=== PATIENT | male | born 1930 | race Caucasian/White ===

== ENCOUNTER 2018-03-09 19:03 | Inpatient (IN) | payer OTHER, MEDICARE ==
[2018-03-09] MEDS ORDERED: NS 1,000 ML IV ONE (19:26)
--- NOTE | 2018-03-09 19:29 | EDPHY ---
H & P Time Seen by Provider: 03/09/18 19:26 HPI/ROS: HPI CHIEF COMPLAINT: Generalized weakness, cough, short of breath, hypoxia, fever HISTORY OF PRESENT ILLNESS: Patient very pleasant 87-year-old male, presents emergency room with shortness of breath, increasing confusion, fever to 102 at his primary care doctor's office today, generalized weakness, and productive cough with productive sputum. The daughter arrived from [facility] ([place], [place]) to take him to the primary care doctor's office today for increasing confusion. He was noted to have a fever at his primary care doctor's office of 102. Was noted to be tachycardic. He was referred to the emergency room. Upon arrival he is noted to have an oxygen saturation of 80%. He does complain of global weakness. And shortness of breath. Past Medical History: Underlying lung disease, spinal stenosis Past Surgical History: No recent surgery Social History: Denies daily use of drugs alcohol tobacco. Family History: ROS REVIEW OF SYSTEMS: A comprehensive 10 point review of systems is otherwise negative aside from elements mentioned in the history of present illness. Exam Constitutional elderly, thin appearing, frail triage nursing summary reviewed, vital signs reviewed, awake/alert. Vital signs noted at triage. Eyes normal conjunctivae and sclera, EOMI, PERRLA. HENT normal inspection, atraumatic, dry mucus membranes, no epistaxis, neck supple/ no meningismus, no raccoon eyes. Respiratory crackles on the right lung field, left lung virgen clear. Cardiovascular rate normal, regular rhythm, no murmur, no edema, distal pulses normal. Gastrointestinal soft, non-tender, no rebound, no guarding, normal bowel sounds, no distension, no pulsatile mass. Genitourinary no CVA tenderness. Musculoskeletal trace pitting edema bilaterally lower extremities, no midline vertebral tenderness, full range of motion, no calf swelling, no tenderness of extremities, no meningismus, good pulses, neurovascularly intact. Skin pink, warm, & dry, no rash, skin atraumatic. Neurologic awake, alert and oriented x 3, AAOx3, moves all 4 extremities equally, motor intact, sensory intact, CN II-XII intact, normal cerebellar, normal vision, normal speech. Psychiatric normal mood/affect. Heme/Lymph/Immune no lymphadenopathy. Differential Diagnosis: Includes but is not limited to in a particular order acute sepsis, bacteremia, dehydration, pneumonia, electrolyte disturbance, pulmonary embolism, CHF Medical Decision Making: Plan for this patient workup for hypoxia fever will obtain blood work, IV establishment, blood cultures, lactic acid, chest x-ray, EKG plan for admission to the hospital. Re-evaluation: Patient's chest x-ray reviewed. Shows cardiomegaly bilateral pulmonary infiltrates concerning for bilateral pneumonia. Patient's O2 sat 92% on 5 L resting comfortably. Blood work noted he has a low sodium of 125. He has only received 500 cc of fluid here in the emergency room. Patient's blood work reviewed. Patient is getting a CT angiogram of his chest to further delineate these infiltrates on his chest x-ray. Patient will be admitted to Dr. Janny Glover, for further care of hypoxia, fever , pneumonia. 2118: Patient remains hemodynamically stable on supplemental oxygen 6 L nasal cannula. Patient admitted to hospital for bilateral pneumonia. Source: Patient, Family - Medical/Surgical History Hx Diabetes: No - Social History Smoking Status: Never smoked Constitutional: Initial Vital Signs Temperature (C) 36.8 C 03/09/18 19:10 Heart Rate 76 03/09/18 19:10 Respiratory Rate 22 H 03/09/18 19:10 Blood Pressure 101/59 L 03/09/18 19:10 O2 Sat (%) 80 L 03/09/18 19:10 O2 Delivery Mode Nasal Cannula O2 (L/minute) 5 Allergies/Adverse Reactions: Latex, Natural Rubber Allergy (Mild, Verified 07/31/15 08:46) Rash Home Medications: Medication Instructions Recorded Aspirin EC [Aspirin EC 81 mg (*)] 81 mg PO DAILY 03/09/18 Donepezil HCl [Donepezil HCl] 10 mg PO DAILY 03/09/18 Herbals/Supplements -Info Only 1 ea PO DAILY 03/09/18 Levothyroxine Sodium 50 mcg PO DAILY 03/09/18 [Levothyroxine Sodium] Nitroglycerin [Nitrostat 0.4 mg 0.4 mg SL Q5M PRN 03/09/18 (*)] Timolol Maleate [Timolol Maleate] 1 drop EACHEYE BID 03/09/18 Travoprost Z 0.004% [Travatan Z 1 drops EACHEYE HS 03/09/18 0.004% (*)] Albuterol Sulfate [Proair Hfa] 2 puffs IH Q3H PRN 03/10/18 Azelastine HCl 2 spray EACHNARE DAILY 03/10/18 Budesonide 90 Mcg INH [Pulmicort 2 puffs IH DAILY 03/10/18 90 Mcg Flexhaler (*)] Medical Decision Making - Data Points Laboratory Results: Laboratory Results 03/09/18 19:30 03/09/18 19:30 Microbiology Results: MICROBIOLOGY 03/09/18 20:00 Nasal, Sinus - Eswab Respiratory Panel (PCR) - Final Human Metapneumovirus Detected Medications Given: Albuterol/Ipratropium (Duoneb) 3 ml IH Q6HRS MOJGAN Stop: 09/06/18 06:59 Last Admin: 03/10/18 16:18 Dose: 3 ml Aspirin Buffered (Aspirin Ec) 81 mg PO DAILY MOJGAN Stop: 09/06/18 08:59 Last Admin: 03/10/18 08:35 Dose: 81 mg Budesonide (Pulmicort 180mcg Flexhaler) 1 puffs IH BID MOJGAN Stop: 09/06/18 08:59 Last Admin: 03/10/18 08:21 Dose: Not Given Donepezil HCl (Aricept) 10 mg PO DAILY MOJGAN Stop: 09/06/18 08:59 Last Admin: 03/10/18 10:34 Dose: 10 mg Heparin Sodium (Porcine) (Heparin Sc Injection) 5,000 unit SC Q8 MOJGAN Stop: 09/05/18 21:59 Last Admin: 03/10/18 13:10 Dose: Not Given Sodium Chloride (Ns) 1,000 mls @ 100 mls/hr IV CONT MOJGAN Stop: 09/05/18 21:29 Last Admin: 03/10/18 16:01 Dose: 1,000 mls Piperacillin/Tazobactam/Dextrose (Zosyn 2.25 Gm (Premix)) 50 mls @ 100 mls/hr IV Q6H MOJGAN PRN Reason: Protocol Stop: 04/09/18 02:59 Last Admin: 03/10/18 15:59 Dose: 50 mls Levothyroxine Sodium (Synthroid) 50 mcg PO DAILY MOJGAN Stop: 09/06/18 08:59 Last Admin: 03/10/18 07:59 Dose: 50 mcg Methylprednisolone Sodium Succinate (Solu-Medrol) 125 mg IVP Q6HRS MOJGAN Stop: 09/06/18 07:14 Last Admin: 03/10/18 12:59 Dose: 125 mg Miscellaneous Medication (Timolol Maleate [Timolol Maleate]) 1 drop EACHEYE BID MOJGAN Stop: 09/06/18 08:59 Last Admin: 03/10/18 10:34 Dose: 1 drop Senna/Docusate Sodium (Senokot-S) 1 - 2 tab PO BID MOJGAN PRN Reason: Protocol Stop: 09/06/18 08:59 Last Admin: 03/10/18 08:36 Dose: 1 tab Discontinued Medications Albuterol/Ipratropium (Duoneb) 3 ml IH Q6HRS PRN PRN Reason: Short of Breath/Dyspnea Stop: 09/05/18 22:37 Last Admin: 03/10/18 02:39 Dose: 3 ml Sodium Chloride (Ns) 1,000 mls @ 0 mls/hr IV ONCE ONE PRN Reason: Wide Open Stop: 03/09/18 19:27 Last Admin: 03/09/18 19:54 Dose: 1,000 mls Vancomycin/Sodium Chloride (Vancomycin 1 Gm (Premix)) 250 mls @ 250 mls/hr IV EDNOW ONE PRN Reason: Protocol Stop: 03/09/18 20:58 Last Admin: 03/09/18 20:32 Dose: 250 mls Piperacillin/Tazobactam/Dextrose (Zosyn (Premix)) 100 mls @ 200 mls/hr IV EDNOW ONE PRN Reason: Protocol Stop: 03/09/18 20:28 Last Admin: 03/09/18 21:08 Dose: 100 mls Departure - Departure Disposition: [facility] Acute Clinical Impression: Hypoxia Pneumonia Qualifiers: Pneumonia type: due to unspecified organism Laterality: bilateral Lung location : lower lobe of lung Qualified Code(s): J18.1 - Lobar pneumonia, unspecified organism Condition: Fair
--- NOTE | 2018-03-09 19:30 | CPEKG ---
Heart Rate: 84 RR Interval: 714 P-R Interval: 164 QRSD Interval: 86 QT Interval: 344 QTC Interval: 407 P Bristow: 61 QRS Bristow: -16 T Wave Bristow: 20 EKG Severity - OTHERWISE NORMAL ECG - EKG Impression: SINUS RHYTHM EKG Impression: ATRIAL PREMATURE COMPLEX EKG Impression: BORDERLINE LEFT AXIS DEVIATION Electronically Signed By: Rory Gamble 09-Mar-2018 20:56:21
[2018-03-09 19:44] LABS: PLATELET COUNT 155 10^3/uL (150-400)
[2018-03-09 19:51] LABS: INR 1.18 (0.83-1.16); PROTIME(PATIENT) 15.2 SEC (12.0-15.0)
[2018-03-09 19:58] LABS: CREATINE KINASE 298 IU/L (0-224)
[2018-03-09] MEDS ORDERED: PIPERACILLIN/TAZO 4.5 GM/DEX 100 ML IV ONE (19:59)
[2018-03-09] MEDS ORDERED: VANCOMYCIN HCL/NORMAL SALINE 250 ML IV ONE (19:59)
[2018-03-09] MEDS ORDERED: IOPAMIDOL (ISOVUE 370) 100 ML BTL IV ONE (20:03)
[2018-03-09] MEDS ORDERED: ONDANSETRON 4 MG/2 ML VIAL IVP PRN (21:22)
[2018-03-09] MEDS ORDERED: BISACODYL 10 MG SUPP PR PRN (21:22)
[2018-03-09] MEDS ORDERED: ONDANSETRON DISINTEGRATING 4 MG TAB PO PRN (21:22)
[2018-03-09] MEDS ORDERED: LACTULOSE 20 GM/30 ML UDCUP PO PRN (21:22)
[2018-03-09] MEDS ORDERED: POLYETHYLENE GLYCOL 3350 17 GM PKT PO PRN (21:22)
[2018-03-09] MEDS ORDERED: MAGNESIUM HYDROXIDE 30 ML UDCUP PO PRN (21:22)
[2018-03-09] MEDS ORDERED: ACETAMINOPHEN 325 MG TAB PO PRN (21:22)
[2018-03-09] MEDS ORDERED: NITROGLYCERIN 0.4 MG BTL SL PRN (21:29)
--- NOTE | 2018-03-09 22:15 | SOAPPROG ---
SOAP Progress Note Assessment/Plan: Assessment: 87 yo male w/ bilat lower lobe pna, fatigue, decreased po intake, hyponatremia - briefly. See HPI for full details. -pna - rec'd vanc and zosyn in ER, will cont on zosyn for now and re-assess in am, follow sats, admit to PCU for close monitoring as he is requiring 5L O2 currently, bcx x 2 pending, repeat lactate improved, hydration w/ caution, nebs , consider po steroids if needed for not cont pulmicort. -hypoNa - carefully replace and follow sodium closely -glaucoma - cont outpt eye gtts -mild cognitive impairment - cont donepezil -admit to inpt as expect >2 MN w/ multiple comorbities in elderly gentleman w/ bilateral LL PNA and hyponatremia. -dvt proph - hep sc Plan: 03/09/18 22:15 Subjective: Feeling congested, tired, somewhat confused - daughter became concerned and drove up from [employer] to check on her dad and he was ill-appearing and brought him in Objective: Vital Signs Temp Pulse Resp BP Pulse Ox 36.8 C 96 12 101/69 88 L 03/09/18 21:55 03/09/18 21:55 03/09/18 21:55 03/09/18 21:55 03/09/18 21:55 PT 15.2 SEC (12.0-15.0) H 03/09/18 19:30 INR 1.18 (0.83-1.16) H 03/09/18 19:30 GEN: pleasant, mild confusion but alert and appropriate w/ conversation Heent: perr, eomi Neck; soft supple Chest: decreased bs bilat bases Abd: soft nt nd Ext: 1+ ble, RLE ankle>LLE Neuro: mild confusion, fatigue Psych: humor used frequently as per his usual delightful baseline ICD10 Worksheet Patient Problems: Problems Problem Status Onset Hypoxia Acute Pneumonia Acute
[2018-03-09] MEDS ORDERED: IPRATROPIUM/ALBUTEROL 3 ML DEYVIAL IH PRN (22:38)
[2018-03-09] MEDS: HEPARIN 5,000 UNIT/0.5 ML INJ SC SCH (23:31)
--- NOTE | 2018-03-10 01:13 | GHP ---
[f rep st] HISTORY AND PHYSICAL DATE OF ADMISSION: 03/09/2018 HISTORY OF PRESENT ILLNESS: Patient is a pleasant 87-year-old male, who originally presented in clin ic today brought in by his daughter. She lives in [place], but had called him at his independent [facility] facility, [facility], in [place]. Over the last couple days, he has sounded more congested, and this morning, he seemed confused. She became concerned, drove up to visit him and thought he was ill in appearance, his cough and congestion worse, and she was concerned. She brought him into clinic. At presentation to clinic, his temperature was 101.7, he was tachycardic at 85-115, his oxygen satur ation was in the low 80s. He said that he had not had much to eat over the last 1-2 days and that th is illness came on quite suddenly, he believes 2 or 3 days prior to admission. A rapid flu was check ed, which was negative. Given his concerning vitals and some confusion noted on exam, decision was q uickly made to admit him to the hospital. Initially, attempt at direct admission was made, but given the unavailability of immediate bed and his degree of illness, he was sent to the ER for further bryce luation and assessment and further workup prior to admission. In the ER, labs were done, which showed elevated white count of 15 with a left shift. Lactic acid 2. 4. Sodium low at 124. Troponin mildly positive at 0.040. A BNP positive at 1910. Albumin low at 3 .4. Creatinine 1.2. A chest x-ray was done, which showed bilateral infiltrates. EKG was done, whic h showed sinus rhythm with APCs, borderline left axis deviation. CT chest was done which showed bila teral pneumonia, suspected, most prominent involving both lobes posteriorly, with underlying chronic interstitial lung disease. No PE. Some prominent, likely reactive, lymph nodes. The decision was m yokasta to admit him to PCU. MEDICATIONS: The past medications include Voltaren Gel topically to his back p.r.n., donepezil 10 mg daily, Pulmicort 2 puffs daily, ProAir 2 inhalations q.3 hours p.r.n., Astelin 2 sprays each nostril daily, levothyroxine 50 mcg once a day, Nitrostat 0.4 sublingually p.r.n., fish oil 1 daily, vitamin K2 of 100 mcg daily, Slo-Niacin 500 mg daily, aspirin 81 mg daily, timolol 0.25 solution ophthalmic drops once a day, glucosamine, vitamin B, vitamin D, vitamin E, calcium, bilberry, gingko-biloba, pot assium, magnesium. PAST MEDICAL HISTORY: Significant for beryllium exposure in [place] with some underlying interst itial lung disease and reactive airways disease, hyperlipidemia, dementia, hypothyroidism, glaucoma. ALLERGIES: Tobacco smoke, kiwis, and TB skin test. HOSPITALIZATION: He did have a severe allergic reaction to cigarettes, which at the time was worked up as an FL, was negative, but was that severe from his reactive airways disease from beryllium. SOCIAL HISTORY: He currently lives at [facility] in [place]. His is in a [facility]. He is a nonsmoker, does not consume alcohol. He has children, and his daughter, Suki, is very involved in his care, who lives in [place], but drove up for this. REVIEW OF SYSTEMS: GENERAL: Over the last few days, he has felt decreased appetite, some chills, in creasing confusion, general malaise. ENT: Denies any acute changes in hearing, ear pain, sore throa t. RESPIRATORY: Positive for some coughing and congestion over the last few days. Denies any real wheezing or shortness of breath. CARDIOVASCULAR: He denies any chest pain, irregular heartbeats, or palpitations. GI: Denies abdominal pain, blood in stool, change in bowels, constipation. MUSCULOS KELETAL: He has some chronic low back discomfort, but no acute changes. Feels somewhat achy all ove r. SKIN: Dry skin. No hives, itching, or rash. NEUROLOGIC: He has felt a little more weak the la st couple days and a little more confused. PSYCHIATRIC: Denies anxiety. Somewhat depressed mood ov er his 's recent placement in a memory care center, but is coping well overall with this. PHYSICAL EXAMINATION: VITAL SIGNS: Temperature in clinic was 101.7, heart rate 115, 85% on room air , respiration rate 16. In the ER, on initial presentation, he dropped to 80 on room air and up to 92 on 5 L. GENERAL: He is tired appearing, yet still joking around in conversation, pleasant. HEAD: NC/AT. EYES: EOMI. PERR. NECK: Soft and supple. No thyromegaly or masses appreciated. SKIN: Dry. CARDIOVASCULAR: Sinus tachycardia. LUNGS: Decreased breath sounds bilateral bases with fine crackles. ABDOMEN: Soft, nontender, nondistended. No HSM appreciated. EXTREMITIES: Joints withou t acute erythema or warmth or swelling. He has 1+ edema of bilateral lower extremities, up to midshi n with a little bit asymmetry with 2+ of his right ankle distally. NEUROLOGIC: He is alert. Cognit shelby exam grossly normal; however, he does have some mild baseline dementia, which is a little bit wor se today in particular, per his daughter's conversation with him. PSYCHIATRIC: Mood and affect full range. Good eye contact. ASSESSMENT/PLAN: 1. An 87-year-old male with hypoxia, fever, chest x-ray consistent with bilateral infiltrates, chest CT with bilateral lower lobe pneumonia in the background of some mild interstitial lung disease. Pl an: He will be admitted. He received Zosyn and vancomycin in the ER. Will adjust antibiotics, plac e on oxygen, monitor oxygen saturations. Place on PCU with telemetry given his tachycardia and elect rolyte abnormalities. Blood cultures x2 taken. Will follow CBC, BMP. He is also dehydrated and ariane l treat with fluids. 2. Tachycardia. This is likely secondary to his acute illness and dehydration. Will treat carefull y with IV fluids given his hyponatremia and follow closely. 3. Hyponatremia. See above. Will address with normal saline. Want to use some caution with this a s do not want to replace him too rapidly. 4. Reactive airways disease. Will switch him to nebulizers scheduled and consider oral steroids nikhil lillie continuing his Pulmicort inhaler depending on how he is doing. 5. Dementia. Will continue on donepezil. 6. Hypothyroidism. Continue on levothyroxine. 7. Glaucoma. Will continue his outpatient eye drops. 8. Deep vein thrombosis prophylaxis. Will place on heparin subcu. 9. Disposition. Will admit to inpatient. Will likely require greater than 2 midnights' stay given his bilateral pneumonia and hyponatremia. /[id number]/MODL
[2018-03-10] MEDS: HEPARIN 5,000 UNIT/0.5 ML INJ SC SCH ×4 (01:19→22:00)
[2018-03-10] MEDS: PIPERACILLIN/TAZO 2.25 GM/DEX 50 ML IV SCH ×4 (03:45→20:47)
[2018-03-10] MEDS: NS 1,000 ML IV SCH ×2 (03:45→16:01)
[2018-03-10 04:51] LABS: PLATELET COUNT 135 10^3/uL (150-400)
[2018-03-10] MEDS ORDERED: ALBUTEROL HFA ANES ONLY 200 PUFFS/8.5 GM MDI IH PRN (06:53)
[2018-03-10] MEDS ORDERED: ALBUTEROL 60 PUFFS/8 GM MDI IH PRN (06:56)
[2018-03-10] MEDS: methylPREDNISolone SOD SUCC 125 MG/2 ML VIAL IVP SCH ×3 (07:58→18:44)
[2018-03-10] MEDS: LEVOTHYROXINE 50 MCG TAB PO SCH (07:59)
[2018-03-10] MEDS: IPRATROPIUM/ALBUTEROL 3 ML DEYVIAL IH SCH ×4 (08:13→21:37)
[2018-03-10] MEDS: ASPIRIN EC 81 MG TAB PO SCH (08:35)
[2018-03-10] MEDS: SENNOSIDES/DOCUSATE SODIUM TAB PO SCH ×2 (08:36→20:51)
[2018-03-10] MEDS ORDERED: BUDESONIDE 180 MCG MDI IH SCH (09:00)
--- NOTE | 2018-03-10 09:02 | SOAPPROG ---
SOAP Progress Note Assessment/Plan: Assessment: Plan: 03/10/18 08:59 Human metapneumovirus in a patient with underlying asthma. Will continue on high dose steroids for a few more doses and then reduce as he improves. Continue on zosyn for pneumonia coverage acute on chronic respiratory failure--baseline sats are 88% when healthy. Treat oxygen levels to 85% + given tolerance to lower saturations. hyponatremia--improving with fluids. Likely due to stress of illness asthma--steroid and nebs mild STM loss--Dtr Crissy is a great support Subjective: Bebo feels ok. Began to feel sick on Thursday. More cough, congestion and weakness on Thursday. No high fever. Cough is intermittently productive. He does not feel short of breath currently. Objective: Vital Signs Temp Pulse Resp BP Pulse Ox 36.9 C 80 17 95/54 L 92 03/10/18 08:00 03/10/18 08:21 03/10/18 08:21 03/10/18 08:00 03/10/18 08:21 Laboratory Results 03/10/18 03:31 03/10/18 03:31 03/09/18 03/10/18 03/11/18 05:59 05:59 05:59 Intake Total 700 Output Total 430 Balance 270 PT 15.2 SEC (12.0-15.0) H 03/09/18 19:30 INR 1.18 (0.83-1.16) H 03/09/18 19:30 Gen: NAD, pleasant, dtr Crissy present Lungs: very coarse right base most congested, moderate crackles, cough intermittently productive Heart: RRR with some PAC/PVC activity Abd + bs soft NT LE' no edema Saturations 85-90 on 12 liters. CXR very inflammed lower virgen most dense Labs improved ICD10 Worksheet Patient Problems: Problems Problem Status Onset Hypoxia Acute Pneumonia Acute
--- NOTE | 2018-03-10 09:59 | PDMN ---
Medical Necessity Medical necessity: M282 cPNA- A-2 days: hypoxia with RA sats 85%, fever, bilat. infiltrates on CXR, chest CT shows bilat. LL PNA, with mild interstitial lung disease. tachycardia, hyponatremia, RAD, further monitoring, eval and tx needed- anticipate > 2 midnights.
[2018-03-10] MEDS: DONEPEZIL HCL 5 MG TAB PO SCH (10:34)
[2018-03-10] MEDS: Timolol Maleate [Timolol Maleate] 1 DROP EACHEYE SCH (10:34)
--- NOTE | 2018-03-10 12:48 | ASMTCMCOM ---
CM Note CM Note Notes: Patient admitted with Pneumonia and a history of mild ILD and asthma. He is being treated with IV antibiotics and steroids. He normally lives independently at [facility] in [place]. His is in a memory care unit. His daughter, Suki, is supportive and drove up from [place] to support him. PT/OT have been ordered and will assess patient. Case Management will follow for discharge planning. Date Signed: 03/10/2018 12:48 PM Electronically Signed By:Yani Robertson RN
[2018-03-10] MEDS ORDERED: VANCOMYCIN HCL/NORMAL SALINE 250 ML IV SCH (20:00)
[2018-03-10] MEDS ORDERED: VANCOMYCIN 1.25 GM in NS 250 ML IV SCH (20:00)
[2018-03-10] MEDS ORDERED: IPRATROPIUM BROMIDE 0.5 MG/2.5 ML DEYVIAL ONE (21:30)
[2018-03-11] MEDS: Timolol Maleate [Timolol Maleate] 1 DROP EACHEYE SCH ×3 (00:52→20:51)
[2018-03-11] MEDS: methylPREDNISolone SOD SUCC 125 MG/2 ML VIAL IVP SCH ×5 (00:52→23:44)
[2018-03-11] MEDS: TRAVOPROST Z 0.004% 2.5 ML OPHT.BTL EACHEYE SCH ×2 (00:52→20:51)
[2018-03-11 04:13] LABS: PLATELET COUNT 153 10^3/uL (150-400)
[2018-03-11] MEDS: PIPERACILLIN/TAZO 2.25 GM/DEX 50 ML IV SCH ×4 (04:16→21:05)
[2018-03-11] MEDS: NS 1,000 ML IV SCH ×2 (04:17→22:56)
[2018-03-11] MEDS: IPRATROPIUM/ALBUTEROL 3 ML DEYVIAL IH SCH ×4 (05:27→21:30)
[2018-03-11] MEDS: HEPARIN 5,000 UNIT/0.5 ML INJ SC SCH ×3 (07:21→20:59)
[2018-03-11] MEDS ORDERED: ALBUTEROL INH PREPACK MDI TAKEHOME PRN (08:34)
[2018-03-11] MEDS ORDERED: AZELASTINE HCL EACHNARE SCH (09:00)
--- NOTE | 2018-03-11 09:01 | SOAPPROG ---
SOAP Progress Note Assessment/Plan: Assessment: Plan: 03/10/18 08:59 Human metapneumovirus in a patient with underlying asthma. Will continue on high dose steroids for a few more doses and then reduce as he improves. Continue on zosyn for pneumonia coverage acute on chronic respiratory failure--baseline sats are 88% when healthy. Treat oxygen levels to 85% + given tolerance to lower saturations. hyponatremia--improving with fluids. Likely due to stress of illness asthma--steroid and nebs mild STM loss--Dtr Crissy is a great support 03/11/18 08:59 acute on chronic resp failure due pneumonia and HMPV--continue high dose IV steroids for the next 24 hours, hope to taper thereafter MCI/dementia--a bit more symptomatic with hospital, illness, poor sleep and steroids hyponatremia--correcting with IVF's Subjective: Poor sleep. Frequent cough. o/w feels somewhat better Objective: Vital Signs Temp Pulse Resp BP Pulse Ox 36.4 C 62 20 94/54 L 90 L 03/11/18 07:46 03/11/18 07:46 03/11/18 07:46 03/11/18 07:46 03/11/18 07:46 Laboratory Results 03/11/18 03:08 03/11/18 03:08 03/10/18 03/11/18 03/12/18 05:59 05:59 05:59 Intake Total 700 3878 Output Total 430 Balance 270 3878 PT 15.2 SEC (12.0-15.0) H 03/09/18 19:30 INR 1.18 (0.83-1.16) H 03/09/18 19:30 Gen: NAD, a bit steroid amped HEENT: wnl Lungs: coarse, productive cough, some crackles Heart: currently NSR, a flutter briefly overnight Abd + bs soft LE's no edema labs improved oxygen requirements still moderate to high ICD10 Worksheet Patient Problems: Problems Problem Status Onset Hypoxia Acute Pneumonia Acute
[2018-03-11] MEDS: SENNOSIDES/DOCUSATE SODIUM TAB PO SCH ×2 (09:34→20:51)
[2018-03-11] MEDS: LEVOTHYROXINE 50 MCG TAB PO SCH (09:35)
[2018-03-11] MEDS: ASPIRIN EC 81 MG TAB PO SCH (09:35)
[2018-03-11] MEDS: DONEPEZIL HCL 5 MG TAB PO SCH (09:35)
[2018-03-11] MEDS: AZELASTINE NASAL MDI EACHNARE SCH (11:00)
--- NOTE | 2018-03-11 15:20 | ASMTCMCOM ---
CM Note CM Note Notes: Pts case discussed in tx rounds. CM met w/ pt for dispo planning. PT is recommending SNF. Pt deferred that CM speak w/ pts daughter. CM met w/ Suki, daughter for dispo planning. Pts is currently residing at [facility] and has advance dementia. Suki would like a referral made there. Suki reports that pt has had dementia for the last 18 yrs and takes Aricept at 10mg daily for it. Referral sent to [facility]. CM completed non triggering PASRR. Pt is hoping to improve but agreeable to going to [facility] for rehab. CM to follow. Plan: [facility] Date Signed: 03/11/2018 03:19 PM Electronically Signed By:TINA Sims
[2018-03-12] MEDS: PIPERACILLIN/TAZO 2.25 GM/DEX 50 ML IV SCH ×2 (03:23→10:37)
[2018-03-12] MEDS: methylPREDNISolone SOD SUCC 125 MG/2 ML VIAL IVP SCH (04:44)
[2018-03-12] MEDS: HEPARIN 5,000 UNIT/0.5 ML INJ SC SCH ×3 (04:45→22:29)
[2018-03-12] MEDS: IPRATROPIUM/ALBUTEROL 3 ML DEYVIAL IH SCH ×4 (05:58→23:10)
[2018-03-12] MEDS ORDERED: AZITHROMYCIN 250 MG TAB PO ONE (09:42)
--- NOTE | 2018-03-12 09:47 | SOAPPROG ---
SOAP Progress Note Assessment/Plan: Assessment: 87 yo male w/ bilat lower lobe pna - human metapneumovirus, hyponatremia -pna -will change to oral abx first dose azith 500 now, will need to have 250 po qd starting tomorrow, will change from IV solumedrol to oral steroids, cont to follow sats and decreased steroids further if able over next few days. desaturates rapidly w/ ambulation. Still w/ high O2 req't not ready for d/c to SNF w/ this, status still fragile but improved. Cont w/ nebs per RT. -glaucoma - cont outpt eye gtts -mild cognitive impairment - cont donepezil, cognition improved today w/ better sleep last night, as steroids come down this will help as well. -dvt proph - hep sc -dispo - still tenuous w/ oxygen desaturations. Changing to oral steroids and oral abx and would like to see how he does w/ this change. Cont work w/ PT/RT. Appetite improved which is a good sign. Plan: 03/09/18 22:15 03/12/18 09:43 Subjective: Doing better, had a good sleep last night, appetite up Objective: Vital Signs Temp Pulse Resp BP Pulse Ox 36.9 C 63 18 111/55 L 94 03/12/18 09:07 03/12/18 09:07 03/12/18 09:07 03/12/18 09:07 03/12/18 09:07 Laboratory Results 03/11/18 03:08 03/12/18 03:11 03/11/18 03/12/18 03/13/18 05:59 05:59 05:59 Intake Total 3878 1436 Balance 3878 1436 PT 15.2 SEC (12.0-15.0) H 03/09/18 19:30 INR 1.18 (0.83-1.16) H 03/09/18 19:30 Gen: pleasant male, alert, up in chair eating breakfast w/ dtr at bedside Heent: nasal cannula, perr, eomi Neck: soft supple Chest: coarse bs bilateral bases but moving much more air than prior CV: rrr nl s1 s2 Abd: soft nt nd Ext: 1+ edema ICD10 Worksheet Patient Problems: Problems Problem Status Onset Hypoxia Acute Pneumonia Acute
[2018-03-12] MEDS: ASPIRIN EC 81 MG TAB PO SCH (10:12)
[2018-03-12] MEDS: LEVOTHYROXINE 50 MCG TAB PO SCH (10:12)
[2018-03-12] MEDS: DONEPEZIL HCL 5 MG TAB PO SCH (10:13)
[2018-03-12] MEDS: SENNOSIDES/DOCUSATE SODIUM TAB PO SCH ×2 (10:13→22:27)
[2018-03-12] MEDS: AZELASTINE NASAL MDI EACHNARE SCH (10:16)
[2018-03-12] MEDS: NS 1,000 ML IV SCH (10:28)
[2018-03-12] MEDS: Timolol Maleate [Timolol Maleate] 1 DROP EACHEYE SCH ×2 (10:32→22:26)
--- NOTE | 2018-03-12 15:28 | ASMTCMCOM ---
CM Note CM Note Notes: CM met w/ daughter for dispo planning. [facility] has accepted pt. Daughter reports that pt will be here for a few more days. CM to follow. Plan: [facility] Date Signed: 03/12/2018 03:27 PM Electronically Signed By:TINA Sims
[2018-03-12] MEDS ORDERED: TEARS/DEXTRAN 70/HYPROMELLOSE 15 ML OPHT.BTL EACHEYE PRN (17:30)
[2018-03-12] MEDS: predniSONE 20 MG TAB PO SCH (17:52)
[2018-03-12] MEDS: TRAVOPROST Z 0.004% 2.5 ML OPHT.BTL EACHEYE SCH (22:29)
[2018-03-13] MEDS: LEVOTHYROXINE 50 MCG TAB PO SCH (04:25)
[2018-03-13 04:51] LABS: PLATELET COUNT 213 10^3/uL (150-400)
[2018-03-13] MEDS: IPRATROPIUM/ALBUTEROL 3 ML DEYVIAL IH SCH ×4 (05:33→23:53)
[2018-03-13] MEDS: HEPARIN 5,000 UNIT/0.5 ML INJ SC SCH ×3 (06:10→22:32)
[2018-03-13] MEDS: ASPIRIN EC 81 MG TAB PO SCH (08:31)
[2018-03-13] MEDS: DONEPEZIL HCL 5 MG TAB PO SCH (08:31)
[2018-03-13] MEDS: predniSONE 20 MG TAB PO SCH ×2 (08:31→17:24)
[2018-03-13] MEDS: AZELASTINE NASAL MDI EACHNARE SCH (08:32)
[2018-03-13] MEDS: Timolol Maleate [Timolol Maleate] 1 DROP EACHEYE SCH ×2 (08:32→22:30)
[2018-03-13] MEDS: SENNOSIDES/DOCUSATE SODIUM TAB PO SCH ×2 (08:32→22:33)
--- NOTE | 2018-03-13 11:15 | SOAPPROG ---
SOAP Progress Note Assessment/Plan: Assessment: Plan: 03/13/18 11:20 Pneumonia: switched to oral steroids and antibx yesterday. WBC up today, likely due to PO steroids. O2 needs still high, but no significant decline so will continue PO meds and monitor closely. He is less alert this morning, possibly because he slept poorly last night, and possibly because steroid dose decreased. Appetite off this am. Suki will encourage him to eat lunch. Cont with RT, PT Hyponatremia: resolved with IVF MCI/dementia: per dtr, seems better cognitively off IV steroids. Subjective: Very tired this morning as didn't sleep well last night, mainly due to interruptions. Not much energy this morning. Dtr Suki in room who gives me most of his history this morning. Not much appetite this am. Just seen by RT and oxygen increased to 8L per nasal canula. States his mouth feels dry. IV stopped working yesterday so didn't get as much IVF. Yesterday, IV steroids changed to PO steroids and she feels he is clearer cognitively. Note that WBC count is up, but per Suki, no big change in his status. Was also switched to PO antibx yesterday. Ambulating in room to bathroom and needing increased O2 to do so. Remains afebrile. Objective: Vital Signs Temp Pulse Resp BP Pulse Ox 36.6 C 52 L 20 101/53 L 94 03/13/18 08:42 03/13/18 09:49 03/13/18 09:49 03/13/18 08:42 03/13/18 09:49 Laboratory Results 03/13/18 03:10 03/13/18 03:10 03/12/18 03/13/18 03/14/18 05:59 05:59 05:59 Intake Total 1436 1816 Balance 1436 1816 PT 15.2 SEC (12.0-15.0) H 03/09/18 19:30 INR 1.18 (0.83-1.16) H 03/09/18 19:30 General: sitting in chair, sleeping. Arouses easily but falls back to sleep quickly Lungs: moving air in all lung virgen, faint crackles bilateral lower lung virgen. Cardiovascular: RRR Abdomen: soft, NT Extremities: 1+ bilateral edema ICD10 Worksheet Patient Problems: Problems Problem Status Onset Hypoxia Acute Pneumonia Acute
[2018-03-13] MEDS: AZITHROMYCIN 250 MG TAB PO SCH (13:15)
[2018-03-13] MEDS: NS 1,000 ML IV SCH (13:16)
[2018-03-13] MEDS: TRAVOPROST Z 0.004% 2.5 ML OPHT.BTL EACHEYE SCH (22:32)
[2018-03-14] MEDS: LEVOTHYROXINE 50 MCG TAB PO SCH (04:07)
[2018-03-14 05:12] LABS: PLATELET COUNT 212 10^3/uL (150-400)
[2018-03-14] MEDS: HEPARIN 5,000 UNIT/0.5 ML INJ SC SCH ×3 (05:42→21:55)
[2018-03-14] MEDS: IPRATROPIUM/ALBUTEROL 3 ML DEYVIAL IH SCH ×4 (06:00→23:23)
[2018-03-14] MEDS: ASPIRIN EC 81 MG TAB PO SCH (09:24)
[2018-03-14] MEDS: AZITHROMYCIN 250 MG TAB PO SCH (09:24)
[2018-03-14] MEDS: DONEPEZIL HCL 5 MG TAB PO SCH (09:24)
[2018-03-14] MEDS: predniSONE 20 MG TAB PO SCH ×2 (09:24→17:23)
[2018-03-14] MEDS: Timolol Maleate [Timolol Maleate] 1 DROP EACHEYE SCH ×2 (09:25→21:55)
[2018-03-14] MEDS: SENNOSIDES/DOCUSATE SODIUM TAB PO SCH (09:25)
[2018-03-14] MEDS: AZELASTINE NASAL MDI EACHNARE SCH (09:25)
--- NOTE | 2018-03-14 10:27 | SOAPPROG ---
SOAP Progress Note Assessment/Plan: Assessment: Plan: 03/13/18 11:20 Pneumonia: switched to oral steroids and antibx yesterday. WBC up today, likely due to PO steroids. O2 needs still high, but no significant decline so will continue PO meds and monitor closely. He is less alert this morning, possibly because he slept poorly last night, and possibly because steroid dose decreased. Appetite off this am. Suki will encourage him to eat lunch. Cont with RT, PT Hyponatremia: resolved with IVF MCI/dementia: per dtr, seems better cognitively off IV steroids. 03/14/18 10:27 Pneumonia: more alert today. Still with significant O2 needs but doing ok on PO meds. WBC down a little this morning. Will continue supportive care, steroids, azithromycin, RT, PT MCI/dementia: better cognitively this morning, though not engaging much with his son-in-law Subjective: Much more alert this morning. Sitting up in chair eating breakfast. Slept most of the day yesterday and didn't eat much. Still needing encouragement to eat. Feels a little better. Son-in-law here, joking with him, but he isn't up to participating like usual. Hates the lovenox shots. Had a little bleeding with the most recent one. Objective: Vital Signs Temp Pulse Resp BP Pulse Ox 36.6 C 71 20 113/64 90 L 03/14/18 07:28 03/14/18 07:28 03/14/18 07:28 03/14/18 07:28 03/14/18 07:28 Laboratory Results 03/14/18 04:02 03/14/18 04:02 03/13/18 03/14/18 03/15/18 05:59 05:59 05:59 Intake Total 1816 1858 Balance 1816 1858 PT 15.2 SEC (12.0-15.0) H 03/09/18 19:30 INR 1.18 (0.83-1.16) H 03/09/18 19:30 General: awake, alert, sitting in chair eating Lungs: diminished breath sounds but clear in upper virgen, faint crackles in lower virgen CV: RRR without murmur Abdomen: +bowel sounds, soft, NT Extremities: 1+ edema ICD10 Worksheet Patient Problems: Problems Problem Status Onset Hypoxia Acute Pneumonia Acute
[2018-03-14] MEDS: NS 1,000 ML IV SCH (19:07)
[2018-03-14] MEDS: TRAVOPROST Z 0.004% 2.5 ML OPHT.BTL EACHEYE SCH (21:55)
[2018-03-15] MEDS: SENNOSIDES/DOCUSATE SODIUM TAB PO SCH ×3 (00:28→20:31)
[2018-03-15] MEDS: IPRATROPIUM/ALBUTEROL 3 ML DEYVIAL IH SCH ×4 (06:26→21:57)
[2018-03-15] MEDS: HEPARIN 5,000 UNIT/0.5 ML INJ SC SCH ×3 (06:45→21:40)
[2018-03-15] MEDS: LEVOTHYROXINE 50 MCG TAB PO SCH (06:46)
[2018-03-15] MEDS: AZITHROMYCIN 250 MG TAB PO SCH (09:13)
[2018-03-15] MEDS: predniSONE 20 MG TAB PO SCH ×2 (09:13→18:14)
[2018-03-15] MEDS: ASPIRIN EC 81 MG TAB PO SCH (09:13)
[2018-03-15] MEDS: DONEPEZIL HCL 5 MG TAB PO SCH (09:13)
[2018-03-15] MEDS: Timolol Maleate [Timolol Maleate] 1 DROP EACHEYE SCH ×2 (09:15→18:15)
[2018-03-15] MEDS: AZELASTINE NASAL MDI EACHNARE SCH (09:15)
[2018-03-15] MEDS ORDERED: predniSONE 20 MG TAB PO SCH (09:42)
--- NOTE | 2018-03-15 09:44 | SOAPPROG ---
SOAP Progress Note Assessment/Plan: Assessment: 87yo male admitted for human metapneumovirus, pneumonia on cxr, and hyponatremia. Plan: HMV- will plan to increase prednisone to 40mg BID as O2 requirements are still quite high Pneumonia- currently on azithro, white count elevated which is somewhat skewed by prednisone but is up slightly this AM from yesterday, and given slow improvement will add Ceftin Hyponatremia- improved with fluids, will recheck on this mornings labs Dementia- alert and oriented this AM, conversing with me and participatory in his care DVT prophylaxis- lovenox sq Dispo- will plan to keep him another day or two as we increase steroids, add ceftin and try to get his o2 requirements down further. In speaking with his daughter this AM- he has been accepted to the acute rehab facility at [facility] so will plan to get him there when he is stable. 03/15/18 09:44 Subjective: Ray is resting in bed this AM. He says he is feeling better, really unhappy with the lovenox shots as they hurt his stomach. But feels like his appetite is improving. C/o persistent cough. Objective: Vital Signs Temp Pulse Resp BP Pulse Ox 36.9 C 70 13 110/60 90 L 03/15/18 07:46 03/15/18 07:46 03/15/18 07:46 03/15/18 07:46 03/15/18 07:46 Laboratory Results 03/15/18 09:00 03/14/18 03/15/18 03/16/18 05:59 05:59 05:59 Intake Total 1858 1300 Output Total 1400 Balance 1858 -100 PT 15.2 SEC (12.0-15.0) H 03/09/18 19:30 INR 1.18 (0.83-1.16) H 03/09/18 19:30 Gen- Alert, oriented, answering questions appropriately Head- normocephalic, atraumatic EENT- PEERL, EOMI Resp- Diffusely coarse, requiring 7LO2 this AM CV- S1S2, no murmurs, rubs, gallops Abd- SNT, nondistended Extremities- 1+ BLE edema Neuro- grossly intact ICD10 Worksheet Patient Problems: Problems Problem Status Onset Hypoxia Acute Pneumonia Acute
[2018-03-15] MEDS: CEFUROXIME AXETIL 250 MG TAB PO SCH ×2 (11:01→21:40)
--- NOTE | 2018-03-15 12:01 | ASMTCMCOM ---
CM Note CM Note Notes: 03/15/2018 Case Management Note Updated [facility] on pt progress on the phone. Case Management d/c poc: [facility] Case Management to follow Date Signed: 03/15/2018 12:00 PM Electronically Signed By:Mora Ruiz RN
[2018-03-15] MEDS: NS 1,000 ML IV SCH (14:01)
[2018-03-15] MEDS: ALBUTEROL 60 PUFFS/8 GM MDI IH PRN (14:18)
[2018-03-15] MEDS ORDERED: predniSONE 20 MG TAB PO ONE (18:00)
[2018-03-15] MEDS: TRAVOPROST Z 0.004% 2.5 ML OPHT.BTL EACHEYE SCH (21:36)
[2018-03-16] MEDS: IPRATROPIUM/ALBUTEROL 3 ML DEYVIAL IH SCH ×4 (05:17→20:42)
[2018-03-16] MEDS: LEVOTHYROXINE 50 MCG TAB PO SCH (07:33)
[2018-03-16] MEDS: HEPARIN 5,000 UNIT/0.5 ML INJ SC SCH ×3 (07:34→21:03)
[2018-03-16] MEDS: AZELASTINE NASAL MDI EACHNARE SCH (07:37)
[2018-03-16] MEDS: Timolol Maleate [Timolol Maleate] 1 DROP EACHEYE SCH ×2 (07:43→21:14)
[2018-03-16] MEDS: predniSONE 20 MG TAB PO SCH ×2 (09:23→17:59)
[2018-03-16] MEDS: ASPIRIN EC 81 MG TAB PO SCH (09:23)
[2018-03-16] MEDS: AZITHROMYCIN 250 MG TAB PO SCH (09:23)
[2018-03-16] MEDS: CEFUROXIME AXETIL 250 MG TAB PO SCH ×2 (09:24→21:03)
[2018-03-16] MEDS: DONEPEZIL HCL 5 MG TAB PO SCH (09:24)
[2018-03-16] MEDS: SENNOSIDES/DOCUSATE SODIUM TAB PO SCH ×2 (09:25→21:03)
--- NOTE | 2018-03-16 09:25 | SOAPPROG ---
SOAP Progress Note Assessment/Plan: Assessment: 87yo male admitted for human metapneumovirus, pneumonia on cxr, and hyponatremia. Plan: HMV- pred increased to 40mg BID yesterday. O2 requirements down to 4-6L at rest but still requiring up to 15L with ambulation and is experiencing desats into the mid 70s with activity, which is concerning. Pneumonia- azithro + ceftin for broad spectrum coverage Hyponatremia- stable, still on 50cc/h NS Dementia- alert and oriented this AM, conversing with me and participatory in his care DVT prophylaxis- heparin sq Dispo- O2 requirements with activity are still too high to comfortably discharge him. Discussed with daughter this AM- we have [facility] available if needed, but they would rather send him back to [place] with home PT/OT/RECRUITING TEAM LEAD/ RN and then can pay privately for additional help daily so that they can have him at home, as long as it is safe for him to do so. This will be our goal and we can re-evaluate the situation when we are ready to discharge. 03/16/18 09:25 Subjective: Bebo is sitting up in his chair this AM talking with his daughter about what to order for breakfast. He says that he is feeling much better today. His daughter agrees that he looks and seems markedly improved. Objective: Vital Signs Temp Pulse Resp BP Pulse Ox 37.1 C 71 16 142/90 H 88 L 03/16/18 04:00 03/16/18 05:18 03/16/18 05:18 03/16/18 04:00 03/16/18 05:18 Laboratory Results 03/15/18 09:00 03/15/18 09:00 03/15/18 03/16/18 03/17/18 05:59 05:59 05:59 Intake Total 4735 668 4268 Output Total 1400 2100 400 Balance -100 -1800 1220 PT 15.2 SEC (12.0-15.0) H 03/09/18 19:30 INR 1.18 (0.83-1.16) H 03/09/18 19:30 Gen- AAOx3 Head- normocephalic, atraumatic EENT- PEERL, EOMI Resp- rales to bilat bases improved from yesterday, cough heard during exam is more dry as compared to yesterday's wet cough CV- S1S2, no murmurs, rubs, gallops Abd- SNT, non distended Extremities- 2+ BLE edema Neuro- grossly intact ICD10 Worksheet Patient Problems: Problems Problem Status Onset Hypoxia Acute Pneumonia Acute
[2018-03-16] MEDS: CARBAMIDE PEROXIDE EACHEAR SCH (12:10)
[2018-03-16] MEDS: TRAVOPROST Z 0.004% 2.5 ML OPHT.BTL EACHEYE SCH (21:12)
[2018-03-16] MEDS: ALBUTEROL 60 PUFFS/8 GM MDI IH PRN (22:45)
[2018-03-17] MEDS ORDERED: guaiFENesin 200 MG/10 ML UDL PO PRN (00:31)
[2018-03-17] MEDS: IPRATROPIUM/ALBUTEROL 3 ML DEYVIAL IH SCH ×4 (05:08→22:28)
[2018-03-17] MEDS: LEVOTHYROXINE 50 MCG TAB PO SCH (05:57)
[2018-03-17] MEDS: HEPARIN 5,000 UNIT/0.5 ML INJ SC SCH ×3 (05:57→22:44)
[2018-03-17] MEDS: predniSONE 20 MG TAB PO SCH ×2 (08:08→17:21)
[2018-03-17] MEDS: DONEPEZIL HCL 5 MG TAB PO SCH (08:08)
[2018-03-17] MEDS: CEFUROXIME AXETIL 250 MG TAB PO SCH ×2 (08:09→22:44)
[2018-03-17] MEDS: ASPIRIN EC 81 MG TAB PO SCH (08:09)
[2018-03-17] MEDS: Timolol Maleate [Timolol Maleate] 1 DROP EACHEYE SCH ×2 (08:11→20:34)
[2018-03-17] MEDS: [UNRECOGNIZED DRUG - OTHER] PO SCH (08:12)
[2018-03-17] MEDS: AZELASTINE NASAL MDI EACHNARE SCH (08:13)
[2018-03-17] MEDS: CARBAMIDE PEROXIDE EACHEAR SCH ×2 (08:13→22:50)
[2018-03-17] MEDS: SENNOSIDES/DOCUSATE SODIUM TAB PO SCH ×2 (08:14→22:49)
--- NOTE | 2018-03-17 09:00 | SOAPPROG ---
SOAP Progress Note Assessment/Plan: Assessment: Plan: 03/10/18 08:59 Human metapneumovirus in a patient with underlying asthma. Will continue on high dose steroids for a few more doses and then reduce as he improves. Continue on zosyn for pneumonia coverage acute on chronic respiratory failure--baseline sats are 88% when healthy. Treat oxygen levels to 85% + given tolerance to lower saturations. hyponatremia--improving with fluids. Likely due to stress of illness asthma--steroid and nebs mild STM loss--Dtr Crissy is a great support 03/11/18 08:59 acute on chronic resp failure due pneumonia and HMPV--continue high dose IV steroids for the next 24 hours, hope to taper thereafter MCI/dementia--a bit more symptomatic with hospital, illness, poor sleep and steroids hyponatremia--correcting with IVF's 03/17/18 08:59 HMV with pneumonia--check CXR today Clinically he is making slow progress. Will work towards d/c to Home with HHC, oxygen and extended private pay asthma/RAD improving steroids and nebs helping Subjective: Breathing easier at rest. Cough still intermittently challenging. Dry now. Eating and drinking well. Objective: Vital Signs Temp Pulse Resp BP Pulse Ox 36.0 C 81 21 H 105/53 L 73 L 03/17/18 07:20 03/17/18 07:20 03/17/18 07:20 03/17/18 07:20 03/17/18 08:00 Laboratory Results 03/15/18 09:00 03/15/18 09:00 03/16/18 03/17/18 03/18/18 05:59 05:59 05:59 Intake Total 300 2260 Output Total 2100 2725 200 Balance -1800 -465 -200 PT 15.2 SEC (12.0-15.0) H 03/09/18 19:30 INR 1.18 (0.83-1.16) H 03/09/18 19:30 Gen: Brighter, requiring less O2 4 lpm bedside 89-90% Lungs: posterior crackles and congestion are improving Heart: RRR LE's 2-3 +edema ICD10 Worksheet Patient Problems: Problems Problem Status Onset Hypoxia Acute Pneumonia Acute
[2018-03-17 10:58] LABS: PLATELET COUNT 288 10^3/uL (150-400)
--- NOTE | 2018-03-17 15:04 | ASMTCMCOM ---
CM Note CM Note Notes: CM met w/ pts daughter for dispo planning. The new plan is for pt to discharge home w/ caregivers and [facility]. [facility] is able to accept referral. Pt is a [facility] survivor. CM left a msg for Elli (P#: [phone]) at [facility] to start the referral process. CM sent Elli a referral through [employer]. Pts daughter reports that they can private pay for a caregiver until [facility] can staff this case. Pts daughter is afraid that pt will catch a bug if he goes to [facility]. Pts daughter was wondering if pt would be eligible for [facility] inpatient rehab. CM spoke w/ Janny, PT regarding d/c POC. Janny does not think pt will qualify for [facility] inpatient rehab at this time. Pts daughter would like to get pt as good as possible so pt does not need a walker. Pt will have an o2 need at time of d/c. CM to follow. Plan: [facility], PT, RN, [employer], [employer]; private duty Date Signed: 03/17/2018 03:03 PM Electronically Signed By:TINA Sims
[2018-03-17] MEDS: guaiFENesin 200 MG/10 ML UDL PO PRN ×2 (22:44)
[2018-03-17] MEDS: TRAVOPROST Z 0.004% 2.5 ML OPHT.BTL EACHEYE SCH (22:45)
[2018-03-18 05:22] LABS: PLATELET COUNT 236 10^3/uL (150-400)
[2018-03-18] MEDS: IPRATROPIUM/ALBUTEROL 3 ML DEYVIAL IH SCH ×4 (05:23→22:06)
[2018-03-18] MEDS: HEPARIN 5,000 UNIT/0.5 ML INJ SC SCH ×2 (06:10→16:13)
[2018-03-18] MEDS: LEVOTHYROXINE 50 MCG TAB PO SCH (06:10)
[2018-03-18] MEDS: Timolol Maleate [Timolol Maleate] 1 DROP EACHEYE SCH ×2 (08:25→21:36)
[2018-03-18] MEDS: ASPIRIN EC 81 MG TAB PO SCH (08:41)
[2018-03-18] MEDS: predniSONE 20 MG TAB PO SCH ×2 (08:41→18:26)
[2018-03-18] MEDS: SENNOSIDES/DOCUSATE SODIUM TAB PO SCH ×2 (08:41→21:39)
[2018-03-18] MEDS: CEFUROXIME AXETIL 250 MG TAB PO SCH ×2 (08:41→21:39)
[2018-03-18] MEDS: DONEPEZIL HCL 5 MG TAB PO SCH (08:41)
[2018-03-18] MEDS: ALBUTEROL 60 PUFFS/8 GM MDI IH PRN (08:44)
[2018-03-18] MEDS: AZELASTINE NASAL MDI EACHNARE SCH (08:46)
[2018-03-18] MEDS: CARBAMIDE PEROXIDE EACHEAR SCH ×2 (08:49→21:42)
[2018-03-18] MEDS: [UNRECOGNIZED DRUG - OTHER] PO SCH (08:51)
--- NOTE | 2018-03-18 09:09 | SOAPPROG ---
SOAP Progress Note Assessment/Plan: Assessment: Plan: 03/10/18 08:59 Human metapneumovirus in a patient with underlying asthma. Will continue on high dose steroids for a few more doses and then reduce as he improves. Continue on zosyn for pneumonia coverage acute on chronic respiratory failure--baseline sats are 88% when healthy. Treat oxygen levels to 85% + given tolerance to lower saturations. hyponatremia--improving with fluids. Likely due to stress of illness asthma--steroid and nebs mild STM loss--Dtgregory Woodward is a great support 03/11/18 08:59 acute on chronic resp failure due pneumonia and HMPV--continue high dose IV steroids for the next 24 hours, hope to taper thereafter MCI/dementia--a bit more symptomatic with hospital, illness, poor sleep and steroids hyponatremia--correcting with IVF's 03/17/18 08:59 HMV with pneumonia--check CXR today Clinically he is making slow progress. 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 Dtgregory Woodward working on setting up care at home, hopefully home tomorrow if the pieces are all together. Subjective: Feeling gradually better. Sleep not so good. No new sx, cough less Objective: Vital Signs Temp Pulse Resp BP Pulse Ox 36.4 C 72 16 137/92 H 92 03/18/18 04:00 03/18/18 05:23 03/18/18 05:23 03/18/18 04:00 03/18/18 05:23 Laboratory Results 03/18/18 03:30 03/15/18 09:00 03/17/1818 03/19/18 05:59 05:59 05:59 Intake Total 2260 750 Output Total 2725 2700 Balance -465 -1950 PT 15.2 SEC (12.0-15.0) H 03/09/18 19:30 INR 1.18 (0.83-1.16) H 03/09/18 19:30 Gen: tired HEENT: wnl Lungs: sary basilar crackles, dry cough CXR with lots of inflammation LE's with misty's 4l 88-90% sat bedside after turning down oxygen ICD10 Worksheet Patient Problems: Problems Problem Status Onset Hypoxia Acute Pneumonia Acute
[2018-03-18] MEDS: guaiFENesin 200 MG/10 ML UDL PO PRN ×2 (16:02→21:40)
[2018-03-18] MEDS: TRAVOPROST Z 0.004% 2.5 ML OPHT.BTL EACHEYE SCH (21:38)
[2018-03-19] MEDS: LEVOTHYROXINE 50 MCG TAB PO SCH (05:58)
[2018-03-19] MEDS: guaiFENesin 200 MG/10 ML UDL PO PRN (05:59)
[2018-03-19] MEDS: IPRATROPIUM/ALBUTEROL 3 ML DEYVIAL IH SCH ×4 (06:12→20:58)
--- NOTE | 2018-03-19 08:53 | SOAPPROG ---
SOAP Progress Note Assessment/Plan: Assessment: Plan: 03/10/18 08:59 Human metapneumovirus in a patient with underlying asthma. Will continue on high dose steroids for a few more doses and then reduce as he improves. Continue on zosyn for pneumonia coverage acute on chronic respiratory failure--baseline sats are 88% when healthy. Treat oxygen levels to 85% + given tolerance to lower saturations. hyponatremia--improving with fluids. Likely due to stress of illness asthma--steroid and nebs mild STM loss--Gary Woodward is a great support 03/11/18 08:59 acute on chronic resp failure due pneumonia and HMPV--continue high dose IV steroids for the next 24 hours, hope to taper thereafter MCI/dementia--a bit more symptomatic with hospital, illness, poor sleep and steroids hyponatremia--correcting with IVF's 03/17/18 08:59 HMV with pneumonia--check CXR today Clinically he is making slow progress. 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 Dtgregory Woodward working on setting up care at home, hopefully home tomorrow if the pieces are all together. 03/19/18 08:52 acute on chronic resp failure aggravated by HMPV and pneumonia with underlying RAD. Still struggling. Add meds to reduce cough. CXR in am thrush--add nystatin edema--check AM labs Subjective: Cough, sore throat, poor appetite,fatigue/lack of sleep are still main issues. Walked 350' 3x yesterday Objective: Vital Signs Temp Pulse Resp BP Pulse Ox 36.6 C 68 17 103/63 75 L 03/19/18 08:00 03/19/18 08:00 03/19/18 08:00 03/19/18 08:00 03/19/18 08:30 Laboratory Results 03/18/18 03:30 03/15/18 09:00 03/18/18 03/19/18 03/20/18 05:59 05:59 05:59 Intake Total 750 1760 500 Output Total 2700 3000 300 Balance -1950 -1240 200 PT 15.2 SEC (12.0-15.0) H 03/09/18 19:30 INR 1.18 (0.83-1.16) H 03/09/18 19:30 Gen: tired saturating low 80's at bedside Lungs: improved aeration. coughing paroxysms are miserable to watch and difficult for patient. sputum clear Heart :RRR Abd + bs soft LE's 2-3+ edema with weeping r>l ICD10 Worksheet Patient Problems: Problems Problem Status Onset Hypoxia Acute Pneumonia Acute
[2018-03-19] MEDS: Timolol Maleate [Timolol Maleate] 1 DROP EACHEYE SCH ×2 (09:47→21:18)
[2018-03-19] MEDS: predniSONE 20 MG TAB PO SCH ×2 (09:48→17:16)
[2018-03-19] MEDS: ASPIRIN EC 81 MG TAB PO SCH (09:48)
[2018-03-19] MEDS: AZELASTINE NASAL MDI EACHNARE SCH (09:48)
[2018-03-19] MEDS: CEFUROXIME AXETIL 250 MG TAB PO SCH ×2 (09:48→21:23)
[2018-03-19] MEDS: guaiFENesin 600 MG TAB.ER PO SCH ×2 (09:48→21:20)
[2018-03-19] MEDS: BENZONATATE 100 MG CAP PO SCH ×3 (09:48→21:23)
[2018-03-19] MEDS: DONEPEZIL HCL 5 MG TAB PO SCH (09:48)
[2018-03-19] MEDS: [UNRECOGNIZED DRUG - OTHER] PO SCH (09:49)
[2018-03-19] MEDS: SENNOSIDES/DOCUSATE SODIUM TAB PO SCH ×2 (09:51→21:27)
[2018-03-19] MEDS: CARBAMIDE PEROXIDE EACHEAR SCH ×2 (09:51→21:27)
[2018-03-19] MEDS: NYSTATIN SUSP 500000 UNIT/5 ML UDCUP PO SCH ×3 (13:13→21:27)
[2018-03-19] MEDS: GUAIFENESIN/DM 10 ML UDCUP PO PRN ×3 (13:14→21:25)
--- NOTE | 2018-03-19 14:48 | ASMTCMCOM ---
CM Note CM Note Notes: KAVYA spoke w/ ILAN Kumar regarding d/c POC. The plan remains the same. Elli from [facility] [employer] is working w/ Suki to arrange for non skilled HC. In the meanwhile, Suki will use private duty caregivers. [facility] will provide skilled HC. CM to follow. Plan: private duty HC + [facility] with [facility]; THEODORA BORJA RN Date Signed: 03/19/2018 02:48 PM Electronically Signed By:TINA Sims
[2018-03-19] MEDS: TRAVOPROST Z 0.004% 2.5 ML OPHT.BTL EACHEYE SCH (21:23)
[2018-03-20 04:15] LABS: PLATELET COUNT 255 10^3/uL (150-400)
[2018-03-20] MEDS: LEVOTHYROXINE 50 MCG TAB PO SCH (05:40)
[2018-03-20] MEDS: GUAIFENESIN/DM 10 ML UDCUP PO PRN ×3 (05:41→23:00)
[2018-03-20] MEDS: NYSTATIN SUSP 500000 UNIT/5 ML UDCUP PO SCH ×4 (05:42→23:00)
[2018-03-20] MEDS: IPRATROPIUM/ALBUTEROL 3 ML DEYVIAL IH SCH ×4 (05:46→20:44)
[2018-03-20] MEDS: SENNOSIDES/DOCUSATE SODIUM TAB PO SCH ×2 (07:08→23:01)
[2018-03-20] MEDS: DONEPEZIL HCL 5 MG TAB PO SCH (09:44)
[2018-03-20] MEDS: guaiFENesin 600 MG TAB.ER PO SCH ×2 (09:44→23:00)
[2018-03-20] MEDS: CEFUROXIME AXETIL 250 MG TAB PO SCH ×2 (09:45→23:00)
[2018-03-20] MEDS: BENZONATATE 100 MG CAP PO SCH ×3 (09:45→23:00)
[2018-03-20] MEDS: predniSONE 20 MG TAB PO SCH ×2 (09:45→18:10)
[2018-03-20] MEDS: ASPIRIN EC 81 MG TAB PO SCH (09:45)
[2018-03-20] MEDS: Timolol Maleate [Timolol Maleate] 1 DROP EACHEYE SCH ×2 (09:46→22:58)
[2018-03-20] MEDS: AZELASTINE NASAL MDI EACHNARE SCH (09:46)
[2018-03-20] MEDS: CARBAMIDE PEROXIDE EACHEAR SCH ×2 (09:48→23:16)
[2018-03-20] MEDS: [UNRECOGNIZED DRUG - OTHER] PO SCH (09:49)
[2018-03-20] MEDS ORDERED: FUROSEMIDE 20 MG/2 ML VIAL IVP ONE (10:03)
[2018-03-20] MEDS ORDERED: ALBUMIN 25% 200 ML IV ONE (10:04)
[2018-03-20] MEDS ORDERED: SODIUM CHLORIDE 1,000 MG TAB PO ONE (10:15)
[2018-03-20] MEDS: ALBUMIN 25% 100 ML IV SCH ×2 (10:39→13:04)
--- NOTE | 2018-03-20 10:47 | SOAPPROG ---
SOAP Progress Note Assessment/Plan: Assessment: 87yo male admitted for human metapneumovirus, pneumonia on cxr, and hyponatremia. Plan: HMV in patient with chronic asthma/RAD- 40mg bid prednisone working well Pneumonia- repeat cxr this AM pending, has finished course of azithro, will finish course of ceftin (Thursday will be 10days) Hyponatremia- down to 126 today from 136. Will give 1000mg sodium tab this AM, and 20mg of lasix after albumin admin. Recheck BMP at 1700 to monitor sodium. CHF-BNP at 630, down from 1910 on admission, but still with pitting BLE edema. Albumin down to 2.5 today so will give some albumin as well as a dose of 20mg lasix Dementia- AAO, appears to be at baseline mentation DVT prophylaxis- heparin sq Dispo- hopefully home tomorrow pending repeat sodium levels. Planning for home with home health as well as extended private home health. 03/20/18 10:51 Subjective: Bebo is sitting up in his chair eating breakfast this morning, his daughter is at the bedside. He says that he's feeling better today, and that his cough is improved with the guafenisen. His daughter agrees that the guafenisen is helping significantly and they feel that he is almost ready to go home. She is concerned that he may not be answering questions quite as quickly as he normally dose. Objective: Vital Signs Temp Pulse Resp BP Pulse Ox 36.3 C 74 22 H 106/54 L 90 L 03/20/18 07:54 03/20/18 07:54 03/20/18 07:54 03/20/18 07:54 03/20/18 07:54 Laboratory Results 03/20/18 03:23 03/20/18 03:23 03/19/18 03/20/18 03/21/18 05:59 05:59 05:59 Intake Total 1760 2400 Output Total 3000 3450 300 Balance -1240 -1050 -300 PT 15.2 SEC (12.0-15.0) H 03/09/18 19:30 INR 1.18 (0.83-1.16) H 03/09/18 19:30 Gen- AAOx3, vitals stable Head- normocephalic, atraumatic EENT- PEERL, EOMI Resp- bibasliar crackles, though markedly improved CV- S1S2, RRR, no murmurs, rubs, gallops Abd- SNT, nondistended, + bs Extremities- 3+ bilateral lower extremity edema, does not appear to be weeping at this time Psych- mood full range Neuro- grossly intact ICD10 Worksheet Patient Problems: Problems Problem Status Onset Hypoxia Acute Pneumonia Acute
[2018-03-20] MEDS: TRAVOPROST Z 0.004% 2.5 ML OPHT.BTL EACHEYE SCH (22:59)
[2018-03-21] MEDS: LEVOTHYROXINE 50 MCG TAB PO SCH (04:04)
[2018-03-21] MEDS: IPRATROPIUM/ALBUTEROL 3 ML DEYVIAL IH SCH ×2 (05:15→12:33)
[2018-03-21] MEDS: NYSTATIN SUSP 500000 UNIT/5 ML UDCUP PO SCH (06:07)
[2018-03-21] MEDS: BENZONATATE 100 MG CAP PO SCH (08:47)
[2018-03-21] MEDS: DONEPEZIL HCL 5 MG TAB PO SCH (08:47)
[2018-03-21] MEDS: SENNOSIDES/DOCUSATE SODIUM TAB PO SCH ×2 (08:47→09:18)
[2018-03-21] MEDS: ASPIRIN EC 81 MG TAB PO SCH (08:47)
[2018-03-21] MEDS: CEFUROXIME AXETIL 250 MG TAB PO SCH (08:47)
[2018-03-21] MEDS: predniSONE 20 MG TAB PO SCH (08:48)
[2018-03-21] MEDS: guaiFENesin 600 MG TAB.ER PO SCH (08:48)
[2018-03-21] MEDS: Timolol Maleate [Timolol Maleate] 1 DROP EACHEYE SCH (08:50)
[2018-03-21] MEDS: AZELASTINE NASAL MDI EACHNARE SCH (08:51)
[2018-03-21] MEDS: CARBAMIDE PEROXIDE EACHEAR SCH (08:52)
[2018-03-21] MEDS: [UNRECOGNIZED DRUG - OTHER] PO SCH (08:53)
--- NOTE | 2018-03-21 10:32 | PDHOMEO2F ---
Home Oxygen Face to Face Home Orders: I certify that a physician or a nurse practitioner or physician's assistant store manager sales has had a [id number] encounter with this patient on the date of this order due to the diagnosis listed, which relates to the primary reason the patient requires home oxygen. Alternative treatments have been tried, or considered, and deemed ineffective. It is anticipated that supplemental oxygen will result in improvement with treatment. Home oxygen qualifying diagnosis: Pneumonia, hypoxemia SpO2 on room air (%): 80 Frequency of home oxygen needed: continuous Home oxygen liters per minute: 5-6L titrate to saturation 85-92% Home oxygen delivery device: nasal cannula Concentrator: Yes E-tanks for mobility and back up: Yes If ordering portable O2, is the patient mobile in the home?: Yes I certify that, based on these findings, the home oxygen is medically necessary for this patient for the following length of time. - he will need this at least until he comes in for follow up appointment with PCP on March 25 for re -evaluation. Length of time home oxygen needed: 1 month (we will re-evaluate oxygen need in clinic in 5 days) Home Oxygen Comment: pt requesting humidified oxygen please as he has a dry cough and high oxygen liter demand currently and it is very drying without the humidification
--- NOTE | 2018-03-21 11:20 | PDIAF ---
- Diagnosis Diagnosis: pneumonia Code Status: Limited Resuscitation - Medication Management Discharge Medications: Medications to Continue on Transfer Aspirin EC [Aspirin EC 81 mg (*)] 81 mg PO DAILY 03/09/18 [Last Taken 03/09/18] Donepezil HCl 10 mg PO DAILY 03/09/18 [Last Taken 03/09/18] Herbals/Supplements -Info Only 1 ea PO DAILY 03/09/18 [Last Taken Unknown] Levothyroxine Sodium 50 mcg PO DAILY 03/09/18 [Last Taken 03/09/18] Nitroglycerin [Nitrostat 0.4 mg (*)] 0.4 mg SL Q5M PRN 03/09/18 [Last Taken Unknown] Timolol Maleate 1 drop EACHEYE BID 03/09/18 [Last Taken 03/09/18] Travoprost Z 0.004% [Travatan Z 0.004% (*)] 1 drops EACHEYE HS 03/09/18 [Last Taken 03/08/18] Azelastine HCl 2 spray EACHNARE DAILY 03/10/18 [Last Taken Unknown] Albuterol Sulfate [Proair Hfa] 2 puffs IH Q3H #0 03/21/18 [Last Taken Unknown] Budesonide 90 Mcg INH [Pulmicort 90 Mcg Flexhaler (*)] 2 puffs IH DAILY #0 03/21 [Last Taken Unknown] Cefuroxime Axetil [Ceftin (*)] 250 mg PO BID 4 Days #8 tab 03/21/18 [Last Taken Unknown] Ipratropium/Albuterol [Duoneb (*)] 3 ml IH Q6HRS 7 Days #30 deyvial 03/21/18 [ Last Taken Unknown] guaiFENesin [Mucinex 600 MG (*)] 600 mg PO BID tab.er 03/21/18 [Last Taken Unknown] predniSONE 40 mg PO BIDMEAL #19 tablet 03/21/18 [Last Taken Unknown] Discharge Medications: Refer to the Discharge Home Medication list for PRN reason. - Orders Services needed: Home Care, Registered Nurse, Physical Therapy Home Care Face to Face: I certify that this patient was under my care and that I had the required [id number] encounter meeting the encounter requirements on the discharge day. My findings support the fact that the patient is homebound as defined in Home Care Face to Face Continued: [facility] Chapter 7 Medicare Benefits Manual 30.1.1 , The condition of the patient is such that there exists a normal inability to leave home and consequently, leaving home would require a considerable and taxing effort. Isolation Type: Contact Isolation, Droplet Isolation Diet Recommendation: no restrictions on diet Diet Texture: Regular Texture Diet Additional Instructions: Ha has a follow up appointment at 2:15 with Topher Murillo on March 25 Do not use albuterol or usual combination inhaler this week - will be on nebulizer treatments q 6 hours and prednisone. Will see at follow up appt in clinic this week how he is doing and adjust Will need home PT and RN, in addition will have some private care paid for from [employer] beryllium exposure in the past - daughter Suki has arranged for this. Will be on taper of prednisone 40 mg po bid x 3 d, 20 mg po bid x 3 d, 10 mg po bid x 3 d. This has been called into [facility]. Will be on home oxygen with humidification and using nebulizer with duonebs which were called in to [place] as well. Has 8 more pills of ceftin 250 mg twice daily to complete antibiotic course. - Labs/Radiology BMP Date: 03/23/18 (needs a follow up BMP has had hyponatremia) - Follow Up Care Current Providers and Referrals: Janny Glover MD [Primary Care Provider] - As per Instructions
--- NOTE | 2018-03-21 11:25 | SOAPPROG ---
SOAP Progress Note Assessment/Plan: Assessment: 87 yo male w/ bilat lower lobe pna - human metapneumovirus, hyponatremia -pna -will change to oral abx first dose azith 500 now, will need to have 250 po qd starting tomorrow, will change from IV solumedrol to oral steroids, cont to follow sats and decreased steroids further if able over next few days. desaturates rapidly w/ ambulation. Still w/ high O2 req't not ready for d/c to SNF w/ this, status still fragile but improved. Cont w/ nebs per RT. -glaucoma - cont outpt eye gtts -mild cognitive impairment - cont donepezil, cognition improved today w/ better sleep last night, as steroids come down this will help as well. -dvt proph - hep sc -dispo - still tenuous w/ oxygen desaturations. Changing to oral steroids and oral abx and would like to see how he does w/ this change. Cont work w/ PT/RT. Appetite improved which is a good sign. Plan: 03/09/18 22:15 03/12/18 09:43 03/21/18 11:20 87 yo male w/ slowly resolving pna human metapneumovirus and hyponatremia -doing better today, hyponatremia improved, coughing improved, oxygen sats improved - plan: home w/ home nebulizer q 6h, hold usual home inhalers, prednisone w/ taper 40 bid x 3 d, 20 po bid x 3d, 10 po bid x 3 d (will have f/ u in clinic March 25 at 2:15 to assess taper and oxygen), home oxygen w/ humidification ordered, ceftin x 8 more doses rx sent to [place] already and daughter picking it up, otc robitussin. Call if any ? or concerns. Discussed plans with respiratory therapy. Requesting home RN,HH, PT for continued rehab and strengthening, will need f/u bmp on March 23 (ordered). -glaucoma resume usual meds -mild cognitive impairment - donepezil, cognition better today w/ Na 132. -dispo - d/c today w/ plans as above. Subjective: Doing better, wants to go home , daughter in agreement Objective: Vital Signs Temp Pulse Resp BP Pulse Ox 35.4 C L 59 L 18 112/65 80 L 03/21/18 08:00 03/21/18 08:00 03/21/18 08:00 03/21/18 08:00 03/21/18 10:36 Laboratory Results 03/20/18 03:23 03/21/18 03:27 03/20/18 03/21/18 03/22/18 05:59 05:59 05:59 Intake Total 2400 1240 Output Total 3450 3500 Balance -1050 -2260 PT 15.2 SEC (12.0-15.0) H 03/09/18 19:30 INR 1.18 (0.83-1.16) H 03/09/18 19:30 Gen: pleasant, bright spirits Heent: perr, eomi, nasal cannula Chest: coarse bs but better air movement throughout CV: rrr Abd soft nt nd Ext: 1-2+ ble edema, wearing stocking hose ICD10 Worksheet Patient Problems: Problems Problem Status Onset Hypoxia Acute Pneumonia Acute
--- NOTE | 2018-03-21 12:40 | ASMTCMCOM ---
CM Note CM Note Notes: Patient has been medically cleared for discharge to home with [facility] though [facility] and private services through [facility], I left a message with Elli and she asked that I fax orders to her site project manager Dominga [phone] confirmed receipt, Per interagency orders, patient requires home health RN and PT. Home oxygen has also been arranged for patient. CM available should other needs arise. Plan: Home with [facility] and [facility] for non skilled assistance. Date Signed: 03/21/2018 12:39 PM Electronically Signed By:Lelo Abrams RN
--- NOTE | 2018-03-21 12:54 | ASMTCMCOM ---
CM Note CM Note Notes: Spoke with patient's daughter regarding discharge and services. She is aware and agreement of plan. She is requesting information on loan closets in area. Will provide information. Date Signed: 03/21/2018 12:53 PM Electronically Signed By:Lelo Abrams RN
[2018-03-21 13:12] VITALS: BP 103/63
--- NOTE | 2018-03-21 22:25 | GDS ---
[f rep st] DISCHARGE SUMMARY ADMISSION DIAGNOSIS: Pneumonia. DISCHARGE DIAGNOSIS: Human metapneumovirus pneumonia. HPI/HOSPITAL COURSE: The patient is a pleasant 87-year-old gentleman who originally presented to [facility] on 03/09/2018, where he was found to have a cough and hypoxia and a fever with cognition a little bit off his usual baseline with decreased p.o. intake for at least 2 days prior to presentation. He was sent over to the ER for further workup and admission given his initial hypoxemia and fever of 10 2. In the ER he had initial labs drawn which showed a hyponatremia with sodium of 125. He was requi ring 5 L to maintain saturations around 90. He had a chest x-ray concerning for bilateral pulmonary infiltrates and was sent for a chest CT scan, which showed again bilateral pneumonia, prominent invol ving both lower lobes posteriorly with some chronic interstitial lung disease. No pulmonary emboli. Some reactive lymph nodes. A respiratory pathogen panel was done, IV fluids initiated, respiratory treatments, and the patient admitted. During his hospitalization his respiratory pathogen panel retu rned for human metapneumovirus. He was placed on isolation. He was requiring significant oxygen up to 10 L, episodically had paroxysmal coughing and shortness of breath. He required high-dose IV Solu -Medrol of 125 mg q.6 hours initially as he progressed. He was transferred to p.o. prednisone. He initially was treated with IV antibiotics, and these were changed to azithromycin and Ceftin durin g his hospital course. His oxygen requirements came down to about 5 L, still desaturating rapidly wit h ambulation. His hyponatremia initially resolved; however, did return a 2nd time due to his pulmona ry process. He was treated with a little bit of normal saline, albumin, Lasix, to restore his normal sodium level and treated with nebulizer treatments by respiratory therapy and guaifenesin for his co [facility]. He finally made improvement and on 03/21/2018, he is being discharged home still requiring 5 L to 6 L to keep saturations between 85 and 92. He will have 4 more days of Ceftin 250 mg 1 p.o. twice . This was sent into [facility], and his daughter picked it up. He also is being sent home with a nebulizer and nebulizer treatments to be done q.6 hours. He will continue on oral prednisone 40 mg p.o. b.i.d. for 3 more days, then decrease to 20 mg p.o. b.i.d. If still doing well, decrease at that point to 10 mg p.o. b.i.d. He will have followup in 4 days, March 25, with Topher Chidi at 2:15 in clinic to assess his progress with this and make sure he is okay to continue with the prednisone tap er and at what point we can switch him back to his usual outpatient inhalers instead of nebulizer lorena atments in addition to steroids. He will have home care with [facility] home nurse as well as chief physical therapist apy. In addition, due to his history of work at [employer] and beryllium exposure, he qualifies for paid skilled assistance at home, and this has been arranged by his daughter to help bridge the trans ition back to his independent living facility. MEDICATIONS ON DISCHARGE: Include Astelin nasal spray 2 sprays each nostril daily, Travatan eye drop s q.h.s., timolol 1 drop each eye b.i.d., vitamin D, nitroglycerin p.r.n., aspirin 81 mg p.o. daily, levothyroxine 50 mcg daily, donepezil 10 mg p.o. daily, prednisone with taper as discussed above, sta rting for the next 3 days, then 40 mg p.o. b.i.d., guaifenesin 600 mg p.o. b.i.d., DuoNeb with ipratr opium and albuterol 3 mL inhaled q.6 hours, and Ceftin 250 mg p.o. b.i.d. x4 more days. Once he is improved, he will follow up in clinic and be able to transition back to his budesonide inh aler and ProAir when things have stabilized. He also will be ordered a basic metabolic panel to be brittany vidal in 2 days at home with Home Health to make sure his sodium has not decreased again. /[id number]/MODL
== END 2018-03-21 16:17 | disposition home health service (06) | DRG 194 ==
LOC: OBSVTOIN 20:12 → F2W 21:40
PROVIDERS: ADMIT Internal Medicine; ATTEND Internal Medicine
DX: J12.3 Human metapneumovirus pneumonia (principal); E87.1 Hypo-osmolality and hyponatremia; R09.02 Hypoxemia; R00.0 Tachycardia, unspecified; J45.909 Unspecified asthma, uncomplicated; F03.90 Unspecified dementia, unspecified severity, without behavioral disturbance, psychotic disturbance, mood disturbance, and anxiety; E03.9 Hypothyroidism, unspecified; H40.9 Unspecified glaucoma
CPT/HCPCS: 96365; 97116-GP; 97162-GP; 97530-GP; G8978-GP-CI; G8978-GP-CK; G8979-GP-CI; J1644; J1940; J2543; J2930; J3370; J7512; P9047; Q9967